=== PATIENT | male | born 1965 | race Hispanic/Latino ===

== ENCOUNTER 2016-06-05 15:43 | Emergency (ER) | payer OTHER, MEDICARE ==
[~2016-06-05] VITALS: Ht 175.3 cm; Wt 89.4 kg
--- NOTE | 2016-06-05 16:39 | ED GI/GU/ABDOMINAL COMPLAINT ---
History of Present Illness General Chief Complaint: Male Genitourinary Problems Stated Complaint: URINATING BLOOD Source: patient Exam Limitations: no limitations Vital Signs & Intake/Output Vital Signs & Intake/Output Vital Signs Date Time Temp Pulse Resp B/P Pulse O2 O2 Flow FiO2 Ox Delivery Rate 06/05 1733 99.6 93 18 143/86 97 Room Air 06/05 1552 100.2 108 20 148/90 98 Room Air Allergies Coded Allergies: Gadolinium-Containing Contrast Medi (ANAPHYLAXIS 06/05/16) Iodinated Contrast Media - Oral and (ANAPHYLAXIS 06/05/16) Uncoded Allergies: NO MRI (PT HAS STEEL IN HIS HEAD 06/05/16) Reconcile Medications Ciprofloxacin HCl (Cipro) 500 MG TABLET 1 TAB PO BID UTI Cyanocobalamin (Vitamin B-12) (Cyanocobalamin Injection) 1,000 MCG/ML VIAL 1 ML IM Q30D SUPPLEMENT (Reported) Phenazopyridine HCl (Pyridium) 200 MG TABLET 1 TAB PO TID PRN BLADDER PAIN Triage Note: TRIAGE: PT TO ER C/C BLOOD IN URINE AND PRESSURE TYPE PAIN TO TIP OF PENIS. ONSET YESTERDAY. PAIN IS CONSTANT BUT WORSE WHEN VOIDING. STATES BLOOD DOESN'T COME OUT UNTIL THE END. Triage Nurses Notes Reviewed? yes HPI: 51-year-old male with severe sudden onset urinary frequency urgency burning with urination especially at the termination of urinating. It notices small amount of blood in the urine, mild suprapubic pain. He is urinating small amounts frequently, positive hesitation. No previous urinary tract infections in the past, no nausea no vomiting, no back pain. No prostate issues. No discharge from the penis no swelling. He had a tactile fever last night and again this morning with mild chills. No treatment thus far. Past History Travel History Traveled to [place] past 21 day No Medical History Any Pertinent Medical History? 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 No Review of Systems Review of Systems Constitutional: Reports: see HPI. EENTM: Reports: no symptoms. Respiratory: Reports: no symptoms. Cardiovascular: Reports: no symptoms. GI: Reports: no symptoms. Genitourinary: Reports: see HPI. Musculoskeletal: Reports: no symptoms. Skin: Reports: no symptoms. Neurological/Psychological: Reports: no symptoms. Hematologic/Endocrine: Reports: no symptoms. Immunologic/Allergic: Reports: no symptoms. All Other Systems: Reviewed and Negative Physical Exam Physical Exam Respiratory: normal breath sounds, chest non-tender, no respiratory distress Cardiovascular: regular rate/rhythm Gastrointestinal: normal bowel sounds, soft, non-tender, no organomegaly Comments: Well-developed well-nourished no apparent distress. HEENT: Atraumatic, extraocular motion intact Neck: Supple, no lymphadenopathy Back: Nontender, no CVA tenderness Respiratory: No respiratory distress Extremities: No edema, full range of motion Neuro: Alert and oriented x3 Psych: Mood affect normal, normal memory normal judgment. Skin: Warm and dry, no rash on exposed skin Core Measures ACS in differential dx? No Severe Sepsis Present: No Septic Shock Present: No Progress Differential Diagnosis: AAA, AMI, appendicitis, biliary colic, bowel obstruction , colon cancer, cholecystitis, diverticulitis, epididymitis, esophageal varices, gastritis, hepatitis, hernia, hemorrhoids, ischemic bowel, inflamm bowel dis, Syeda-Elizabeth tear, orchitis, pancreatitis, prostatitis, peptic ulcer, PUD/GERD, perforated viscous, pyelonephritis, SBO, STD, testicular torsion, ureterolithiasis, urinary retention, urethritis, UTI/pyelo Plan of Care: Orders Procedure Date/time Status CULTURE,URINE 06/05 1631 Active URINALYSIS 06/05 1631 Complete Laboratory Tests 06/05/16 1637: Urine Color YEL, Urine Clarity HAZY H, Urine pH 6.0, Ur Specific [place]ard >= 1.030, Urine Protein 100 H, Urine Ketones 40 H, Urine Nitrite NEG, Urine Bilirubin NEG@ICTO, Urine Urobilinogen 0.2, Ur Leukocyte Esterase SMALL H, Ur Microscopic SEDIMENT EXAMINED, Urine RBC >75 H, Urine WBC 25-50 H, Urine Bacteria MANY H, Urine Hemoglobin LARGE H, Urine Glucose NEG Microbiology 06/05 1637 URINE ROUT: Urine Culture - RECD Initial ED EKG: none Comments: UA positive for UTI treated with Pyridium and Cipro, patient has a low-grade fever, will tx with a longer course. UC sent. return with vomiting, fever, back pain Departure Departure Disposition: HOME OR SELF CARE Condition: Stable Clinical Impression Primary Impression: UTI (urinary tract infection) Qualifiers: Urinary tract infection type: acute cystitis Hematuria presence: with hematuria Qualified Code: N30.01 - Acute cystitis with hematuria Referrals: UNKNOWN (PCP/Family) Additional Instructions: Take antibiotics as directed. Take PYRIDIUM for bladder numbing for your burning with urination. This will turn your urine orange. Take Motrin and Tylenol for fever and pain. Return with worsening fever, flulike illness, nausea vomiting or back pain. Return if you are unable to keep fluids down. Departure Forms: Customer Survey General Discharge Information Prescriptions: Current Visit Scripts Phenazopyridine HCl (Pyridium) 1 TAB PO TID PRN BLADDER PAIN #9 TAB Ciprofloxacin HCl (Cipro) 1 TAB PO BID #14 TAB
[2016-06-05] MEDS ORDERED: CYANOCOBAL1000 MCG/2 IM (16:55)
[2016-06-05] MEDS ORDERED: PYRIDIUM200 M1 PO (17:21)
[2016-06-05] MEDS ORDERED: CIPRO500 M1 PO (17:21)
[2016-06-05 17:33] VITALS: BP 143/86
== END 2016-06-05 17:34 ==
LOC: ERH 15:43
DX: N39.0 Urinary tract infection, site not specified (principal)
CPT/HCPCS: 81001; 87086